=== PATIENT | female | born 1950 ===

== ENCOUNTER 2025-08-26 07:50 | Outpatient (AMB) | payer MEDICARE, SELFPAY ==
--- OUTSIDE RECORDS SUMMARY | 2024-07-20 06:47 | XMS_ITS | Encounter Summary ---
Author Organization [facility] [place] [address] Care Team Providers Care Recreation Therapy Teacher Name Role Phone Unavailable Primary Care Provider Unavailabl e Encounter Details Date Type Department Care Team (Latest Contact Info) Description 07/20/2024 7:47 AM EDT Hospital Encounter TH HISTORIC ENCOUNTERS EASTERN CONVERSION ONLY Sanjuanita Olmstead MD [address] [phone] Encounter for attention to other artificial openings of urinary tract ([facility] V24, [facility] V28) Social History Tobacco Use Types Packs/Day Years Used Date Smoking Tobacco: Never Assessed Comments Unknown Sex and Gender Information Value Date Recorded Sex Assigned at Female 08/13/2024 2:01 PM EST Legal Sex Female 4:52 PM EST Gender Identity Female 08/13/2024 2:01 PM EST Sexual Orientation Not on file documented as of this encounter Plan of Treatment Upcoming Encounters Date Type Department Care Team (Late st Contact Info) Description 08/31/2025 3:[address] [facility] Scan [address] [place] [address] documented as of this encounter Procedures Procedure Name Priority Date/Time Associated Diagnosis Comments REMOVAL-REPLACE NU STENT Routine 07/20/2024 12:25 PM EDT Encounter for attention to other artificial openings of urinary tract (CMS/HCC V24, [facility] V28) documented in this encounter Results * REMOVAL-REPLACE NU STENT (07/20/2024 12:25 PM EDT) Anatomical Region Laterality Modality Interventional R adiology 07/20/2024 8:08 AM EDT Narrative 07/20/2024 12:25 PM EDT [facility] Diagnostic Imaging Department [address] [place] [id number] Patient: FADUMO ACOSTA Barbara Jaimes./Age/Sex: 1950 - 74 - F Unit#: [id number] Location/Status: [facility] CLI Mnemonic/Ordering Site: [facility] Ordering Physician: SANJUANITA OLMSTEAD MD REMOVAL-REPLACE NU STENT - 07/20/24911 Report Status:Signed INDICATION: Bladder carcinoma status post ileal conduit formation with long- standing right-sided nephroureteral catheter. Routine exchange requested. TECHNIQUE/FINDINGS: Informed consent was obtained after the risks, benefits and alternatives particularly to procedure were discussed in detail. Any questions were answered in detail. Informed consent was signed by the patient. Timeout was performed as per hospital protocol acknowledged by the staff present. Right side: Initial nephroureterogram performed. Catheter cut and then an Amplatz wire was advanced through the nephroureteral catheter however the wire would not advance the distal pigtail. The catheter was removed and then the tract was cannulated with a 5 Algerian Kumpe catheter. Catheter was eventually manipulated into the collecting system, down the ureter and then into the neobladder. Catheter removed over Amplatz wire and a new 8 Algerian, 22 cm nephroureteral catheter was advanced distal pigtail formed in the neobladder and proximal pigtail formed in the renal pelvis. Follow-up nephroureterogram demonstrates adequate positioning of the catheter. Total patient dose (air kerma): 40 mGy IMPRESSION: Right-sided nephroureteral catheter exchange. Dictating Physician: VERO NEVAREZ MD Electronically Signed by: VERO NEVAREZ MD Dic Date/Time: 07/20/24 1156 Sign date/Time: 07/20/24 1225 Procedure Note Vero Nevarez MD - 08/03/2024 [facility] Diagnostic Imaging Department [address] [place] [id number] Patient: FADUMO ACOSTA Barbara /Age/Sex: 1950 - 74 - F Unit#: [id number] Location/Status: [facility] Mnemonic/Ordering Site: [facility] Ordering Physician: SANJUANITA OLMSTEAD MD REMOVAL-REPLACE NU STENT - 07/20/24911 Report Status:Signed INDICATION: Bladder carcinoma status post ileal conduit formation withlong- standing right-sided nephroureteral catheter. Routine exchangerequested. TECHNIQUE/FINDINGS: Informed consent was obtained after the risks, benefits and alternatives particularly to procedure were discussed in detail. Any questions wereanswered in detail. Informed consent was signed by the patient. Timeout was performed as per hospital protocol acknowledged by the staff present. Right side: Initial nephroureterogram performed. Catheter cut and thenan Amplatz wire was advanced through the nephroureteral catheter however thewire would not advance the distal pigtail. The catheter was removed and thenthe tract was cannulated with a 5 Algerian Kumpe catheter. Catheter waseventually manipulated into the collecting system, down the ureter and then intothe neobladder. Catheter removed over Amplatz wire and a new 8 Algerian, 22 cm nephroureteral catheter was advanced distal pigtail formed in theneobladder and proximal pigtail formed in the renal pelvis. Follow-up nephroureterogram demonstrates adequate positioning of the catheter. Total patient dose (air kerma): 40 mGy IMPRESSION: Right-sided nephroureteral catheter exchange. Dictating Physician: VERO NEVAREZ MD Electronically Signed by: VERO NEVAREZ MD Dic Date/Time: 07/20/24 1156 Sign date/Time: 07/20/24 1225 us Sanjuanita Olmstead MD IMG IR PROCEDURES Final Result documented in this encounter Visit Diagnoses Diagnosis Encounter for attention to other artificial openings of urinary tract (CMS/HCC V24, CMS/HCC V28) documented in this encounter
--- OUTSIDE RECORDS SUMMARY | 2025-08-26 07:52 | XMS_ITS | Clinical Summary ---
Author Organization [facility] [place] [address] Phone Care Team Providers Care Epic Cadence Specialists Name Role Phone Physician, No Pcp Primary Care Provider Unavaila ble Allergies No known active allergies Medications No known medications Encounters Date Type Department Care Team Description 07/31/2025 Results Follow-Up [facility] Interventional Radiology [address] [place] [address] Vero Nevarez MD 07/25/2025 8:56 AM EDT - 07/25/2025 11:59 PM EDT Hospital Encounter [facility] Interventional Radiology [address] [place] [address] Malignant neoplasm of bladder (CMS/HCC V24, CMS/HCC V28) Discharge Disposition: Home or Self Care from Last 3 Months Social History Tobacco Use Types Packs/Day Years Used Date Smoking Tobacco: Never Assessed Comments Unknown Sex and Gender Information Value Date Recorded Sex Assigned at Female 08/13/2024 2:01 PM EST Legal Sex Female 4:52 PM EST Gender Identity Female 08/13/2024 2:01 PM EST Sexual Orientation Not on file Last Filed Vital Signs Vital Sign Reading Time Taken Comments Blood Pressure 141/75 07/25/2025 12:00 PM EDT Pulse 76 07/25/2025 12:13 PM EDT Temperature 36.9 C (98.5 F) 07/25/2025 9:06 AM EDT Respiratory Rate 18 07/25/2025 11:15 AM EDT Oxygen Saturation 96% 07/25/2025 12:13 PM EDT Inhaled Oxygen Concentration - - Weight 65.8 kg (145 lb) 07/25/2025 9:06 AM EDT Height 170.2 cm (5' 7 ) 07/25/2025 9:06 AM EDT Body Mass Index 22.71 07/25/2025 9:06 AM EDT Plan of Treatment Upcoming Encounters Date Type Department Care Team (Late st Contact Info) Description 08/31/2025 3:30 PM EST Appointment [facility] CT Scan [address] [place] [address] Health Maintenance Due Date Last Done Comments Breast Cancer Screening 1950 Colorectal Cancer Screening: Colonoscopy 1950 DTaP,Tdap,and Td Vaccines (1 - Tdap) 1970 Pneumococcal Vaccine: 50+ Years (1 of 1 - PCV) 2001 Zoster Vaccines (1 of 2) 2001 Falls Risk Assessment 09/04/2022 Hepatitis C Screening 09/04/2022 Medicare Annual Wellness Visit 09/04/2022 Osteoporosis Screening (Bone Density Screening) 09/04/2022 Social Influencers of Health Screening 09/04/2022 Depression Screening 10/06/2024 COVID-19 Vaccine (4 - 2024-2 6 season) 2025 08/07/2021, 01/29/2021, 01/08/2021 Influenza Vaccine (#1) 2025 RSV Immunization Adult Patients (1 - 1-dose 75+ series) 2026 HIB Vaccines Aged Out No longer eligi ble based on patient's age to complete this topic HPV Vaccines Aged Out No longer eligi ble based on patient's age to complete this topic Hepatitis A Vaccines Aged Out No long er eligible based on patient's age to complete this topic Hepatitis B Vaccines Aged Out No long er eligible based on patient's age to complete this topic IPV Vaccines Aged Out No longer eligi ble based on patient's age to complete this topic MMR Vaccines Aged Out No longer eligi ble based on patient's age to complete this topic Meningococcal ACWY Vaccine Aged Out N o longer eligible based on patient's age to complete this topic Meningococcal B Vaccine Aged Out No l onger eligible based on patient's age to complete this topic RSV Immunization Patients Under 20 months Aged Out No longer eligible b ased on patient's age to complete this topic Varicella Vaccines Aged Out No longer eligible based on patient's age to complete this topic Medical Devices Implanted Type Area Help Desk Assistant Device Identifier Shelf Expiration Date Model / Serial / Lot Stent Nephroureteros 8.5f 22cm Ult8.5-8.5-22-Nuc l-B-Hc - [id number] - [id number] Implanted:Qty: 1 on 10/19/2024 by Vero Nevarez MD at [facility] Stents Right: [employer] [id number] 01/15/2027 [id number] / [id number] / [id number] Stent Nephroureteros 8.5f 22cm Ult8.5-8.5-22-Nuc l-B-Hc - [id number] - [id number] Implanted:Qty: 1 on 12/14/2024 by Shaka Figueroa MD at [facility] Stents Right: [employer] [id number] 01/15/2027 [id number] / [id number] / [id number] Stent Nephroureteros 8.5f 22cm Ult8.5-8.5-22-Nuc l-B-Hc - [id number] Implanted:Qty: 1 on 03/29/2025 by Vero Nevarez MD at [facility] Stents Right: [employer] [id number] 01/15/2027 [id number] / / [id number] Procedures Procedure Name Priority Date/Time Associated Diagnosis Comments CULTURE URINE Routine 07/25/2025 11:21 AM EDT IR REMOVE/REPLACE EXTERNAL URETERAL STENT RIGHT Routine 07/25/2025 11:00 AM EDT Malignant neoplasm of bladder ([facility]/HCC V24, CMS/HCC V28) from Last 3 Months Results * (ABNORMAL) Urine culture (07/25/2025 11:21 AM EDT) Culture, Urine 50,000-100,000 CFU/mL Proteus mirabilis(A) CARLOS 07/31/2025 8:41 AM EDT [facility] Comment: The organism value for this result has been updated. These results have been appended to the previously preliminary verified report. Edited result: Previously reported as Proteus species on 07/28/2025 at 1226 EDT. Culture, Urine 50,000-100,000 CFU/mL Providencia rettgeri(A) CARLOS 07/31/2025 8:41 AM EDT [facility] Comment: The organism value for this result has been updated. These results have been appended to the previously preliminary verified report. This is an edited result. Previous organism was Gram negative bacilli on 07/30/2025 at 1025 EDT. Urine Urine specimen from nephrostomy tube / Unknown Non-blood Collection / Unknown 07/25/2025 11:21 AM EDT 07/25/2025 11:33 AM EDT Narrative Organism Antibiotic Method Susceptibility Proteus mirabilis Ampicillin/Sulbactam CARLOS <=2 ug/ml: Susceptible Proteus mirabilis Piperacillin/Tazobactam CARLOS <=4 ug/ml: Susceptible Proteus mirabilis Cefazolin (Urine) CARLOS 4 ug/ml: Susceptible Proteus mirabilis Cefoxitin CARLOS <=4 ug/ml: Susceptible Proteus mirabilis Ceftazidime CARLOS <=0.5 ug/ml: Susceptible Proteus mirabilis Ceftriaxone CARLOS <=0.25 ug/ml: Susceptible Proteus mirabilis Cefepime CARLOS <=0.12 ug/ml: Susceptible Proteus mirabilis Meropenem CARLOS 1 ug/ml: Susceptible Proteus mirabilis Amikacin CARLOS 4 ug/ml: Susceptible Proteus mirabilis Gentamicin CARLOS <=1 ug/ml: Susceptible Proteus mirabilis Ciprofloxacin CARLOS <=0.06 ug/ml: Susceptible Proteus mirabilis Levofloxacin CARLOS <=0.12 ug/ml: Susceptible Proteus mirabilis Nitrofurantoin CARLOS 128 ug/ml: Resistant Proteus mirabilis Trimethoprim/Sulfamethoxazole CARLOS <=20 ug/ml: Susceptible Providencia rettgeri Ampicillin/Sulbactam CARLOS 4 ug/ml: Susceptible Providencia rettgeri Piperacillin/Tazobactam CARLOS <=4 ug/ml: Susceptible Providencia rettgeri Cefoxitin CARLOS <=4 ug/ml: Susceptible Providencia rettgeri Ceftazidime CARLOS <=0.5 ug/ml: Susceptible Providencia rettgeri Ceftriaxone CARLOS <=0.25 ug/ml: Susceptible Providencia rettgeri Cefepime CARLOS <=0.12 ug/ml: Susceptible Providencia rettgeri Ciprofloxacin CARLOS <=0.06 ug/ml: Susceptible Providencia rettgeri Levofloxacin CARLOS <=0.12 ug/ml: Susceptible Providencia rettgeri Nitrofurantoin CARLOS 128 ug/ml: Resistant Providencia rettgeri Trimethoprim/Sulfamethoxazole CARLOS <=20 ug/ml: Susceptible Vero Nevarez MD LAB MICROBIOLOGY - GENERAL ORDE ARLINE Final Result [facility] [address] [place] [address], * IR Remove/Replace External Ureteral Stent Right (07/25/2025 11:00 AM EDT) Anatomical Region Laterality Modality Right Interventional R adiology 07/25/2025 11:3 0 AM EDT Impressions 07/25/2025 11:36 AM EDT Nephroureteral catheter exchange as detailed above. -------- FINAL REPORT -------- Dictated By: Vero Nevarez Dictated Date: 07/25/2025 11:30 ET Assigned Physician: Vero Nevarez Reviewed and Electronically Signed By: Vero Nevarez Signed Date: 07/25/2025 11:36 ET Workstation ID: [id number] Transcribed By: Self Edit Transcribed Date: 07/25/2025 11:30 ET Narrative 07/25/2025 11:36 AM EDT INDICATION: Bladder carcinoma status post ileal conduit formation with long- standing right-sided nephroureteral catheter. Patient unable to make her usual 2-3 month appointment secondary to illness. Last exchange was March 29, 2025. TECHNIQUE/FINDINGS: Written informed consent obtained and patient placed prone on the angiographic table. Nephroureterostomy tube was prepped using maximum sterile barrier. Moderate intravenous sedation was initiated and maintained for 30 minutes while the patient was independently monitored by the radiology nurse under the supervision of the interventional radiologist. A total of 2.5 mg of Versed and 100 mcg of fentanyl administered during the procedure. Timeout was performed as per hospital protocol acknowledged by the staff present. 1 mg of Ancef administered intravenously. Patient stated that she had leakage of more viscous fluid from around the catheter site. Upon initial aspiration of the nephroureteral tube cloudy urine noted therefore sample sent for culture. Right side: Initial ureterogram/pyelogram performed. Catheter cut and Glidewire advanced through the catheter with some some resistance and eventually both pigtails were straightened. However the catheter with fused tract over the wire and the patient experienced significant abdominal pain. The catheter was then advanced and retracted times. Glidewire was exchanged for an Amplatz wire which would not advance through the pigtail. Amplatz wire was removed and a Glidewire was then readvanced through the distal pigtail. Convexity catheter was able to be retracted. A new 8 Stateless 22 cm nephroureterostomy tube was advanced over the Glidewire with distal pigtail formed in the bladder and proximal pigtail formed in the renal pelvis. Water-soluble contrast injected to confirm placement. Catheter locked in place and sterile dressing applied. Total patient dose (air kerma): 20 mGy Procedure Note Vero Nevarez MD - 07/25/2025 INDICATION: Bladder carcinoma status post ileal conduit formation withlong- standing right-sided nephroureteral catheter. Patient unable to makeher usual 2-3 month appointment secondary to illness. Last exchange wasJun2024. TECHNIQUE/FINDINGS: Written informed consent obtained and patient placedprone on the angiographic table. Nephroureterostomy tube was prepped usingmaximum sterile barrier. Moderate intravenous sedation was initiated and maintained for 30 minuteswhile the patient was independently monitored by the radiology nurse underthe supervision of the interventional radiologist. A total of 2.5 mg ofVersed and 100 mcg of fentanyl administered during the procedure. Timeout was performed as per hospital protocol acknowledged by the staffpresent. 1 mg of Ancef administered intravenously. Patient stated that she hadleakage of more viscous fluid from around the catheter site. Upon initialaspiration of the nephroureteral tube cloudy urine noted therefore samplesent for culture. Right side: Initial ureterogram/pyelogram performed. Catheter cut andGlidewire advanced through the catheter with some some resistance andeventually both pigtails were straightened. However the catheter withfused tract over the wire and the patient experienced significantabdominal pain. The catheter was then advanced and retracted times.Glidewire was exchanged for an Amplatz wire which would not advancethrough the pigtail. Amplatz wire was removed and a Glidewire was thenreadvanced through the distal pigtail. Convexity catheter was able to beretracted. A new 8 Stateless 22 cm nephroureterostomy tube was advanced overthe Glidewire with distal pigtail formed in the bladder and proximalpigtail formed in the renal pelvis. Water-soluble contrast injected toconfirm placement. Catheter locked in place and sterile dressingapplied. Total patient dose (air kerma): 20 mGy IMPRESSION: Nephroureteral catheter exchange as detailed above. -------- FINAL REPORT -------- Dictated By: Vero Nevarez Dictated Date: 07/25/2025 11:30 ET Assigned Physician: Vero Nevarez Reviewed and Electronically Signed By: Vero Nevarez Signed Date: 07/25/2025 11:36 ET Workstation ID: [id number] Transcribed By: Self Edit Transcribed Date: 07/25/2025 11:30 ET Yariel Olmstead MD IMG IR PROCEDURES Final Result from Last 3 Months Insurance MEDICARE [facility] Care Teams Epic Cadence Specialists Relationship Specialty Start Date End Date Physician, No Pcp PCP - General 07/25/25
--- OUTSIDE RECORDS SUMMARY | 2025-08-26 07:52 | XMS_ITS | Encounter Summary ---
Author [facility] Address [address] [place] [address] Care Team Providers Care Waste Water Worker Name Role Phone Physician, No Pcp Primary Care Provider Unavaila ble Encounter Details Date Type Department Care Team (Late st Contact Info) Description 07/31/2025 Results Follow-Up [facility] Interventional Radiology [address] [place] [phone] Vero Nevarez MD [address] [place] [phone] Social History Tobacco Use Types Packs/Day Years [...] Info) Description 08/31/2025 3:30 PM EST Appointment [facility] CT Scan [address] [place] [phone] documented as of this encounter Visit Diagnoses Not on filedocumented in this encounter Care Teams Waste Water Worker Relationship Specialty Start Date End Date Physician, No Pcp PCP - General 07/25/25 documented as of this encounter
[2025-08-26 08:07] VITALS: BP 126/82; PULSE 103; RESP 17; O2SAT 97; BMI 24.0
--- NOTE | 2025-08-26 08:07 | MHC.PC.OV ---
Vital Signs 08/26/25 08:07 Height 5 ft 7 in Weight 153 lb BMI 24.0 BP 126/82 Blood Pressure Location Rt brachial Position Sitting Respiration 17 Pulse 103 H Pulse Source Pulse Oximeter Pulse Oximetry (%) 97 Oxygen Delivery Method Room Air Intake Visit Reasons: CUSTOMER ORDERS CLERK visit. Intake Note: Pt is here today for New pt visit. Allergies No Known Allergies Allergy (Verified 08/26/25 08:08) Medication List - Last Reconciled 08/26/25 by Phuong Neumann MD No Known Home Meds Tobacco use date assessed: 08/26/25 Fall risk assessment: No Falls in past year Last assessed Fall Risk: 08/26/25 Dental Screening Dental Screen Date: 08/26/25 Did you have a dental visit in the last 12 months?: Yes Did you have a dental problem in the last 6 months where you did not have access to dental care?: No Was dental information given to patient?: Patient has dentist HPI CUSTOMER ORDERS CLERK visit. HPI Details Pt presents for CUSTOMER ORDERS CLERK visit. Past medical history includes SVT status post catheter ablation in February 2025 and history of bladder cancer status post cystectomy and chemotherapy in 2016. Patient is established with urology. [facility] Medical History (Updated 08/26/25 @ 09:09 by Phuong Neumann MD) Annual physical exam Hx of bladder cancer SVT (supraventricular tachycardia) Surgical History (Updated 08/26/25 @ 08:26 by Phuong Neumann MD) Hx of colonoscopy History of bladder surgery Family History (Updated 08/26/25 @ 08:28 by Phuong Neumann MD) Father Colon cancer Mother Heart attack, Onset Age: 69 Social History (Updated 08/26/25 @ 09:03 by Phuong Neumann MD) Household Members Other:: , no children, retired ,real estate associate attorney, Housing: Condominium Patient Tobacco Use Status: Never used Tobacco e-Cigarette/Vaping Use: Never Used service: No Current occupational status: retired Cognitive needs: No Hearing needs: No Vision needs: No Review of Systems Const All systems reviewed & are unremarkable except as noted in HPI and below Eyes Reports no additional complaints ENT Reports no additional complaints Card Reports no additional complaints Resp Reports no additional complaints GI Reports no additional complaints Reports no additional complaints Musc Reports no additional complaints Physical exam (Primary Care) Vital Signs: Last Vital Signs Pulse 103 H 08/26/25 08:07 Resp 17 08/26/25 08:07 BP 126/82 08/26/25 08:07 Pulse Ox 97 08/26/25 08:07 Oxygen Delivery Method Room Air 08/26/25 08:07 BMI result Body Mass Index 24.0 Tobacco/Smoking Status: Tobacco use Status Tobacco use date assessed 08/26/25 08/26/25 08:13 Patient Tobacco Use Status Never used Tobacco 08/26/25 08:13 e-Cigarette/Vaping Use Never Used 08/26/25 08:13 Const General: no acute distress HENMT Head: Yes normal to inspection Ears: unable to visualize TM (Cerumen impaction bilaterally) bilaterally General nose exam: Normal external nose present Throat: Yes posterior oropharynx normal Eyes General: appearance normal, both eyes and all related structures Neck Neck: Yes no lymphadenopathy and Yes supple Resp Effort & Inspection: normal respiratory effort Auscultation: clear to auscultation bilaterally Cardio Rhythm: regular rhythm Heart sounds: S1 normal heart sound present and S2 normal heart sound present GI Inspection: Yes normal to inspection Palpation (GI): Soft to palpation Percussion: Yes normal to percussion Auscultation: normal bowel sounds Coding Level of Care Code New Pt Level 4 (96382) Diagnoses Hx of bladder cancer Z85.51 SVT (supraventricular tachycardia) I47.10 Annual physical exam Z00.00 Assessment & Plan Assessment & Plan (1) Hx of bladder cancer: Comment: 2016 S/P bladder surgery and chemo, stent in place f/u PVU Code(s): Z85.51 - Personal history of malignant neoplasm of bladder Category: Medical Plan: Follow-up with urology (2) SVT (supraventricular tachycardia): Comment: S/P ablation 02/2025, established with [facility] cardiology Code(s): I47.10 - Supraventricular tachycardia, unspecified Category: Medical Plan: We will obtain records from [facility] cardiology (3) Annual physical exam: Code(s): Z00.00 - Encounter for general adult medical examination without abnormal findings Category: Medical Plan: Well-balanced diet regular physical activity discussed with the patient. Mammogram and DEXA will be scheduled. Patient will be referred to GI for repeat colonoscopy she is overdue because of family history of colon cancer. Orders: Orders XR DEXA axial skeleton Today Z78.0 - Asymptomatic menopausal state MM screening mammo BI Today Z00.00 - Encounter for general adult medical examination without abnormal findings, Z12.31 - Encounter for screening mammogram for malignant neoplasm of breast Comprehensive [place]. Panel Fast 1 Year E55.9 - Vitamin D deficiency, unspecified, Z00.00 - Encounter for general adult medical examination without abnormal findings Complete Blood Count Auto Diff 1 Year E55.9 - Vitamin D deficiency, unspecified, Z00.00 - Encounter for general adult medical examination without abnormal findings Lipid Panel 1 Year E55.9 - Vitamin D deficiency, unspecified, Z00.00 - Encounter for general adult medical examination without abnormal findings Vitamin D 25-OH Total 1 Year E55.9 - Vitamin D deficiency, unspecified, Z00.00 - Encounter for general adult medical examination without abnormal findings TSH reflex Free T4 1 Year E55.9 - Vitamin D deficiency, unspecified, Z00.00 - Encounter for general adult medical examination without abnormal findings Referrals Gastroenterology Referral Z00.00 - Encounter for general adult medical examination without abnormal findings
== END 2025-08-26 09:18 | disposition home or self-care (01) ==
PROVIDERS: PCP Internal Medicine; Visit Provider Internal Medicine
DX: Z85.51 Personal history of malignant neoplasm of bladder (principal); I47.10 Supraventricular tachycardia, unspecified; Z00.00 Encounter for general adult medical examination without abnormal findings

== ENCOUNTER → 2025-08-26 07:50 | Outpatient (BNVA) | payer MEDICARE, SELFPAY | PROVIDERS: PCP Internal Medicine; Visit Provider Internal Medicine | DX: Z00.00 Encounter for general adult medical examination without abnormal findings (principal); Z76.89 Persons encountering health services in other specified circumstances; I47.10 Supraventricular tachycardia, unspecified; Z85.51 Personal history of malignant neoplasm of bladder; Z71.3 Dietary counseling and surveillance; Z78.0 Asymptomatic menopausal state | CPT/HCPCS: 99202 ==